=== PATIENT | female | born 1970 | race Caucasian/White ===

== ENCOUNTER → 2016-05-06 | Outpatient (CLI) | payer BC ==
--- NOTE | 2016-05-06 19:07 | US ---
EXAMINATION TYPE: US abdomen complete DATE OF EXAM: 05/06/2016 6:01 PM COMPARISON: NONE CLINICAL HISTORY: ABD Pain R10.84. LUQ pain EXAM MEASUREMENTS: Liver Length: 15.8 cm Gallbladder Wall: 0.2 cm CBD: 0.4 cm Spleen: 9.6 cm Right Kidney: congenitally absent Left Kidney: 15.2 x 5.9 x 6.1 cm TECHNOLOGIST IMPRESSION: Pancreas: not visualized due to midline bowel gas Liver: wnl Gallbladder: no stones seen Evidence for sonographic Styles's sign: No CBD: wnl Spleen: wnl Right Kidney: congenitally absent Left Kidney: enlarged Upper IVC: wnl Abd Aorta: proximal portion not visualized due to bowel gas The liver is homogenous. The intrahepatic portion of the IVC and proximal abdominal aorta are within normal limits. There is no evidence of cholelithiasis. Common bile duct is unremarkable. The visu alized portions of the pancreas are homogenous. The spleen is unremarkable. Kidneys are symmetric a nd free of hydronephrosis. No renal lesions are seen. IMPRESSION: No renal obstruction. Hypertrophied single kidney. No gallstones or dilated ducts.
--- NOTE | 2016-05-09 09:37 | MM ---
Reason for exam: screening (asymptomatic). Last mammogram was performed 2 years and 9 months ago. History: Patient history of other cancer. Physical Findings: A clinical breast exam by your physician is recommended on an annual basis and results should be correlated with mammographic findings. MG Screening Mammo w CAD Bilateral CC and MLO view(s) were taken. Prior study comparison: July 26, 2013, bilateral MG screening mammo w CAD. September 05, 2011, bilateral digital screening mammo w/CAD. There are scattered fibroglandular densities. No significant changes when compared with prior studies. ASSESSMENT: Negative, BI-RAD 1 RECOMMENDATION: Routine screening mammogram of both breasts in 1 year.
== END | disposition home or self-care (01) ==
LOC: RADUSMAIN 16:56
PROVIDERS: ATTEND Internal Medicine
DX: Z12.31 Encounter for screening mammogram for malignant neoplasm of breast (principal); R10.84 Generalized abdominal pain
CPT/HCPCS: 76700; G0202

== ENCOUNTER 2016-12-26 14:51 | Emergency (ER) | payer BC, OTHER ==
[2016-12-26 15:17] VITALS: BP 183/82; RESP 22; TEMP 98.4
[2016-12-26] MEDS ORDERED: IPRATROPIUM-ALBUTEROL 3 ML NEB INHALATION STA (15:24)
--- NOTE | 2016-12-26 15:36 | ED ---
URI HPI - General Chief Complaint: Upper Respiratory Infection Stated Complaint: Cough Time Seen by Provider: 12/26/16 15:19 Source: patient, RN notes reviewed Mode of arrival: ambulatory Limitations: no limitations - History of Present Illness Initial Comments: 46-year-old female presents emergency Department with chief complaint of cough congestion 3 days. Patient states that she has had a cough for the last few days. Patient states that she is a smoker and has COPD. She states she does feel improved after albuterol treatments at home. Patient denies any known fever, chills, headache or dizziness. Patient denies chest pain. Patient states that she stretches [id number] cough and cold medication with some results. - Related Data Home Medications Medication Instructions Recorded Confirmed traMADol HCL [Ultram] 50 mg PO Q4HR PRN 09/27/14 02/15/16 Meloxicam [Mobic] 7.5 mg PO DAILY 07/15/15 02/15/16 Omeprazole [PriLOSEC] 20 mg PO AC-BRKFST 07/15/15 02/15/16 Previous Rx's Medication Instructions Recorded Methocarbamol [Robaxin] 750 mg PO Q6H PRN #20 tab 07/15/15 Ibuprofen [Motrin] 800 mg PO Q6HR PRN #20 tab 09/11/15 HYDROcodone/APAP 7.5-325MG [[place] 1 each PO Q6HR PRN #30 tab 02/15/16 7.5] Levofloxacin [Levaquin] 500 mg PO DAILY #10 tab 12/26/16 Promethaz-Cod 6.25-10 mg/5 ml 5 ml PO Q6HR PRN #120 ml 12/26/16 [Phenergan with Codeine] methylPREDNISolone [Medrol Dose 4 mg PO DIRECTED #1 pack 12/26/16 Pack] Allergies Allergy/AdvReac Type Severity Reaction Status Date / Time No Known Allergies Allergy Verified 12/26/16 15:17 Review of Systems ROS Statement: Those systems with pertinent positive or pertinent negative responses have been documented in the HPI. ROS Other: All systems not noted in ROS Statement are negative. Past Medical History Past Medical History: Atrial Flutter, Asthma, Cancer Additional Past Medical History / Comment(s): Hx. of Atrial Flutter at times, seen by dairy nutrition consultant. States does not happen very often. Born with one kidney - left. History of Any Multi-Drug Resistant Organisms: None Reported Past Surgical History: Bowel Resection, Section, Heart Catheterization , Tonsillectomy, Tubal Ligation Additional Past Surgical History / Comment(s): , Colonoscopy, Colposcopy for cervical ca. Past Anesthesia/Blood Transfusion Reactions: No Reported Reaction Past Psychological History: No Psychological Hx Reported Smoking Status: Current every day smoker Past Alcohol Use History: None Reported Past Drug Use History: None Reported - Past Family History Mother Family Medical History: No Reported History General Exam Limitations: no limitations General appearance: alert, in no apparent distress Head exam: Present: atraumatic, normocephalic, normal inspection Eye exam: Present: normal appearance, PERRL, EOMI. Absent: scleral icterus, conjunctival injection, periorbital swelling ENT exam: Present: normal exam, normal oropharynx, mucous membranes moist, TM's normal bilaterally, normal external ear exam Neck exam: Present: normal inspection, full ROM. Absent: tenderness, meningismus, lymphadenopathy Respiratory exam: Present: wheezes. Absent: normal lung sounds bilaterally, respiratory distress, rales, rhonchi, stridor Cardiovascular Exam: Present: regular rate, normal rhythm, normal heart sounds. Absent: systolic murmur, diastolic murmur, rubs, gallop, clicks Neurological exam: Present: alert, oriented X3, CN II-XII intact Skin exam: Present: warm, dry, intact, normal color. Absent: rash Course Vital Signs 12/26/16 15:15 Temperature 98.4 F Pulse Rate 85 Respiratory 22 Rate Blood Pressure 183/82 O2 Sat by Pulse 96 Oximetry Medical Decision Making - Medical Decision Making 46-year-old female presented emergency from for cough and congestion 2 days. Patient's chest x-ray shows early pneumonia. Patient be started on Levaquin. Patient was also given steroids for her COPD. Patient is advised to stop smoking was counseled in detail greater than 3 minutes for smoking sensation. Patient will continue albuterol treatments at home. Return parameters were discussed. Disposition Clinical Impression: Pneumonia, COPD (chronic obstructive pulmonary disease) Disposition: HOME SELF-CARE Condition: Stable Instructions: Pneumonia (ED) Additional Instructions: Please return to the Emergency Department if symptoms worsen or any other concerns. Prescriptions: Levofloxacin [Levaquin] 500 mg PO DAILY #10 tab methylPREDNISolone [Medrol Dose Pack] 4 mg PO DIRECTED #1 pack Promethaz-Cod 6.25-10 mg/5 ml [Phenergan with Codeine] 5 ml PO Q6HR PRN #120 ml PRN Reason: Cough Referrals: Jaz Lama III, MD [Primary Care Provider] - 1-2 days Time of Disposition: 15:43
--- NOTE | 2016-12-26 15:36 | XR ---
EXAMINATION TYPE: XR chest 2V DATE OF EXAM: 12/26/2016 COMPARISON: NONE HISTORY: Cough TECHNIQUE: Frontal and lateral views of the chest are obtained. FINDINGS: There is evidence of right perihilar infiltrate which may reflect developing pneumonia. Correlate cli nically. No evidence for pneumothorax. No pleural effusion. The cardiac silhouette size is within normal limits. The osseous structures are grossly intact. IMPRESSION: 1. There is evidence of right perihilar infiltrate which may reflect developing pneumonia. Correlate clinically.
[2016-12-26] MEDS ORDERED: LEVOFLOXACIN 500 MG TAB PO STA (15:41)
[2016-12-26] MEDS ORDERED: predniSONE 20 MG TAB PO STA (15:41)
[2016-12-26 15:55] VITALS: PULSE 88
== END 2016-12-26 16:11 | disposition home or self-care (01) ==
LOC: EC 14:51
DX: J44.0 Chronic obstructive pulmonary disease with (acute) lower respiratory infection (principal); J18.9 Pneumonia, unspecified organism; F17.200 Nicotine dependence, unspecified, uncomplicated; Z79.1 Long term (current) use of non-steroidal anti-inflammatories (NSAID); Z79.899 Other long term (current) drug therapy
CPT/HCPCS: 99283 ×2; 94640; 71020; J7512

== ENCOUNTER 2017-10-21 19:06 | Emergency (ER) | payer BC ==
[2017-10-21 19:17] VITALS: TEMP 98
[2017-10-21] MEDS ORDERED: FAMOTIDINE 20 MG/2 ML VIAL IV STA (20:05)
[2017-10-21] MEDS ORDERED: diphenhydrAMINE 50 MG/ML 1 ML VIAL IVP STA (20:05)
[2017-10-21] MEDS ORDERED: ceFAZolin IN SWFI 2 GM/20 ML SYRINGE IVP ONE (20:05)
[2017-10-21] MEDS ORDERED: methylPREDNISolone SOD SUCCI 125 MG/2 ML VIAL IV STA (20:05)
[2017-10-21] MEDS ORDERED: ceFAZolin 1,000 MG in DEXTROSE/WATER 1 50ML.BAG IVPB STA (20:09)
--- NOTE | 2017-10-21 20:41 | ED ---
General Adult HPI - General Chief complaint: Skin/Abscess/Foreign Body Stated complaint: Allergic Reaction Time Seen by Provider: 10/21/17 19:29 Source: patient, RN notes reviewed Mode of arrival: ambulatory Limitations: no limitations - History of Present Illness Initial comments: 47-year-old female presents to the emergency department for a chief complaint of ALLERGIC reaction to bug bites. Patient states that she was outside one month ago when she obtained multiple bug bites to the legs and arms. Patient states that these have not been healing. Patient states that they have been very pruritic. Patient states that today when she was at work her skin became even more pruritic. She states that she tried Benadryl once a couple weeks ago but it didn't help. Patient states that her legs have also been more swollen around the bites. Patient denies history of diabetes, DVT. Patient denies any pain in the legs. Patient states that her legs often swell when she stands which is normal for her. Patient denies any fevers or chills at home. Patient states she just could not handle the itching today.Patient has no other complaints at this time including shortness of breath, chest pain, abdominal pain, nausea or vomiting, headache, or visual changes. - Related Data Home Medications Medication Instructions Recorded Confirmed traMADol HCL [Ultram] 50 mg PO Q4HR PRN 09/27/14 02/15/16 Meloxicam [Mobic] 7.5 mg PO DAILY 07/15/15 02/15/16 Omeprazole [PriLOSEC] 20 mg PO AC-BRKFST 07/15/15 02/15/16 Previous Rx's Medication Instructions Recorded Methocarbamol [Robaxin] 750 mg PO Q6H PRN #20 tab 07/15/15 Ibuprofen [Motrin] 800 mg PO Q6HR PRN #20 tab 09/11/15 HYDROcodone/APAP 7.5-325MG [[place] 1 each PO Q6HR PRN #30 tab 02/15/16 7.5] Levofloxacin [Levaquin] 500 mg PO DAILY #10 tab 12/26/16 Promethaz-Cod 6.25-10 mg/5 ml 5 ml PO Q6HR PRN #120 ml 12/26/16 [Phenergan with Codeine] methylPREDNISolone [Medrol Dose 4 mg PO DIRECTED #1 pack 12/26/16 Pack] Sulfamethox-Tmp 800-160Mg [Bactrim 1 tab PO Q12HR 10 Days tab 10/21/17 DS 800-160 mg] diphenhydrAMINE [Benadryl] 50 mg PO QID PRN #20 capsule 10/21/17 Allergies Allergy/AdvReac Type Severity Reaction Status Date / Time No Known Allergies Allergy Verified 10/21/17 19:16 Review of Systems ROS Statement: Those systems with pertinent positive or pertinent negative responses have been documented in the HPI. ROS Other: All systems not noted in ROS Statement are negative. Past Medical History Past Medical History: Atrial Flutter, Asthma, Cancer Additional Past Medical History / Comment(s): Hx. of Atrial Flutter at times, seen by sales administration manager. States does not happen very often. Born with one kidney - left., uterus/cervical ca History of Any Multi-Drug Resistant Organisms: None Reported Past Surgical History: Bowel Resection, Section, Heart Catheterization , Tonsillectomy, Tubal Ligation Additional Past Surgical History / Comment(s): , Colonoscopy, Colposcopy for cervical ca. Past Anesthesia/Blood Transfusion Reactions: No Reported Reaction Past Psychological History: No Psychological Hx Reported Smoking Status: Current every day smoker Past Alcohol Use History: None Reported Past Drug Use History: None Reported - Past Family History Mother Family Medical History: No Reported History General Exam - General Exam Comments Initial Comments: Patient has multiple small less than 1 cm x 1 cm scabbing bites on the arms as well as lower legs. Patient does have some erythema of the lower legs consistent with cellulitis, possibly stasis dermatitis. No purulent drainage from the scabbing areas. The Multiple excoriations noted around bites. Pedal pulse 2+ in lower extremities bilaterally. Cap refill < 2 seconds. sensation intact. Full range of motion of the knee and ankles bilat. No tenderness of the calf bilaterally. Negative Homans sign bilaterally. Limitations: no limitations General appearance: alert, in no apparent distress Head exam: Present: atraumatic Eye exam: Present: normal appearance ENT exam: Present: normal exam, normal oropharynx, mucous membranes moist, TM's normal bilaterally, normal external ear exam Neck exam: Present: normal inspection, full ROM. Absent: tenderness, meningismus, lymphadenopathy Respiratory exam: Present: normal lung sounds bilaterally. Absent: respiratory distress, wheezes, rales, rhonchi, stridor Cardiovascular Exam: Present: regular rate, normal rhythm, normal heart sounds. Absent: systolic murmur, diastolic murmur, rubs, gallop, clicks GI/Abdominal exam: Present: soft, normal bowel sounds. Absent: distended, tenderness, guarding, rebound, rigid Psychiatric exam: Present: normal affect, normal mood Skin exam: Present: warm, dry, intact, normal color. Absent: rash Course Vital Signs 10/21/17 19:14 Temperature 98.0 F Pulse Rate 82 Respiratory 18 Rate Blood Pressure 121/65 O2 Sat by Pulse 97 Oximetry Medical Decision Making - Medical Decision Making 47-year-old female presents to the emergency determine for a chief complaint of pruritus due to bug bites. Patient states she was bitten by bugs one month ago and they have not healed. Patient states have been itching. Today she has had worse itching and believes she was ALLERGIC to something at work. Patient denies any swelling of the lips tongue or throat. Patient did try Benadryl once a few weeks ago which did not help. Denies history of diabetes. No other medical complications. On exam patient has multiple healing sores noted on the legs and arms. Lower legs do appear to have mild cellulitic changes around the sores extending from ankle to about custodial up the bauman. However, patient states her legs normally look like erythematous in the lower legs with mild swelling. Vitals are within normal limits, no evidence of sepsis. Patient given steroid, benadryl, ancef and feeling much better. Pruritus has decreased. Patient was given a prescription for Benadryl as well as Bactrim to prevent any further infection. She will follow up with primary care in 1-2 days. Patient states she was sees her provider on the sixth. She will return to the emergency Department if she has any worsening symptoms. Disposition Clinical Impression: Allergic reaction, Bug bite Disposition: HOME SELF-CARE Condition: Good Instructions: Insect Bite or Sting (ED), General Allergic Reaction (ED) Additional Instructions: Please take Bactrim as directed. Please take Benadryl as needed for rash. Follow up with primary care in 1-2 days. Return to the emergency department if you have any worsening symptoms. Prescriptions: diphenhydrAMINE [Benadryl] 50 mg PO QID PRN #20 capsule PRN Reason: Rash Sulfamethox-Tmp 800-160Mg [Bactrim DS 800-160 mg] 1 tab PO Q12HR 10 Days tab Is patient prescribed a controlled substance at d/c from ED?: No Referrals: Jaz Lama III, MD [Primary Care Provider] - 1-2 days Time of Disposition: 22:29
[2017-10-21 22:52] VITALS: BP 130/80; PULSE 84; RESP 16
== END 2017-10-21 22:50 | disposition home or self-care (01) ==
LOC: EC 19:06
DX: T63.481A Toxic effect of venom of other arthropod, accidental (unintentional), initial encounter (principal); F17.200 Nicotine dependence, unspecified, uncomplicated; Z85.42 Personal history of malignant neoplasm of other parts of uterus; Z85.41 Personal history of malignant neoplasm of cervix uteri; Z95.818 Presence of other cardiac implants and grafts; Z79.1 Long term (current) use of non-steroidal anti-inflammatories (NSAID); Z79.899 Other long term (current) drug therapy
CPT/HCPCS: 99283; 96365; 96375 ×3; J1200; J2930; J0690

== ENCOUNTER → 2018-08-01 | Outpatient (CLI) | payer BC ==
--- NOTE | 2018-08-02 11:30 | MM ---
Reason for exam: screening (asymptomatic). Last mammogram was performed 2 years and 3 months ago. History: Patient history of other cancer. Took hormonal contraceptives for 15 years. Physical Findings: A clinical breast exam by your physician is recommended on an annual basis and results should be correlated with mammographic findings. MG Screening Mammo w CAD Bilateral CC and MLO view(s) were taken. Prior study comparison: May 06, 2016, bilateral MG screening mammo w CAD. July 26, 2013, bilateral MG screening mammo w CAD. The breast tissue is heterogeneously dense. This may lower the sensitivity of mammography. There is no discrete abnormality. ASSESSMENT: Negative, BI-RAD 1 RECOMMENDATION: Routine screening mammogram of both breasts in 1 year.
== END | disposition home or self-care (01) ==
LOC: RADMAMWWP 12:43
PROVIDERS: ATTEND Family Medicine
DX: Z12.31 Encounter for screening mammogram for malignant neoplasm of breast (principal)
CPT/HCPCS: 77067

== ENCOUNTER → 2020-08-21 | Outpatient (CLI) | payer BC ==
--- NOTE | 2020-08-25 13:31 | MM ---
Reason for exam: screening (asymptomatic). Last mammogram was performed 2 years and 1 month ago. History: Patient history of other cancer. Took hormonal contraceptives for 15 years. Physical Findings: A clinical breast exam by your physician is recommended on an annual basis and results should be correlated with mammographic findings. MG 3D Screening Mammo W/Cad Bilateral CC and MLO view(s) were taken. Prior study comparison: August 01, 2018, bilateral MG screening mammo w CAD. May 06, 2016, bilateral MG screening mammo w CAD. There are scattered fibroglandular densities. ASSESSMENT: Benign, BI-RAD 2 RECOMMENDATION: Routine screening mammogram of both breasts in 1 year.
== END | disposition home or self-care (01) ==
LOC: RADMAMWWP 15:01
PROVIDERS: ATTEND Family Medicine
DX: Z12.31 Encounter for screening mammogram for malignant neoplasm of breast (principal)
CPT/HCPCS: 77063; 77067

== ENCOUNTER → 2020-09-07 | Outpatient (CLI) | payer BC ==
[2020-09-07 15:35] LABS: African American GFR (CKD) >90 (>60 ml/min/1.73 sqM); Blood Urea Nitrogen 11 mg/dL (7-17); Non-African American GFR(CKD) 87 (>60 ml/min/1.73 sqM)
--- NOTE | 2020-09-08 08:19 | CT ---
EXAMINATION TYPE: CT abdomen pelvis w con DATE OF EXAM: 09/07/2020 COMPARISON: None HISTORY: h/o LUQ pain x9 months CT DLP: 2997.60 mGycm Automated exposure control for dose reduction was used. TECHNIQUE: Helical acquisition of images from the lung bases through the pelvis have been completed. CONTRAST: Performed with Oral Contrast and with IV Contrast, patient injected with 100 mL of Isovue 300. FINDINGS: There is a hiatal hernia with partial intrathoracic stomach LUNG BASES: No significant abnormality is appreciated. AORTA: No significant abnormality is appreciated. LIVER/GB: There is low attenuation, upper limit of normal for size. PANCREAS: No significant abnormality is seen. SPLEEN: No significant abnormality is seen. ADRENALS: No significant abnormality is seen. KIDNEYS: Right kidney is absent. There is urine contrast level seen within the prominent extrarenal p humberto region on delayed images, possible ureteropelvic junction stenosis within the left kidney. REPRODUCTIVE ORGANS: Uterus shows a lobular appearance possibly due to underlying fibroids BOWEL: No significant abnormality is seen. No evident appendicitis FREE AIR: No Free Air visible. ASCITES: None visible. PELVIC ADENOPATHY: None visualized. RETROPERITONEAL ADENOPATHY: No Retroperitoneal Adenopathy visible. URINARY BLADDER: Impression: Thickened wall of the urinary bladder possibly due to lack of distentio n, correlate to exclude cystitis OSSEOUS STRUCTURES: Degenerative disc changes are present in the lumbar spine, anterolisthesis grade 1 L5-S1, there is marked facet arthropathy change. No evident spondylolysis.. 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 SINGLE LEFT KIDNEY, SUGGESTIVE OF LEFT UPJ PARTIAL OBST RUCTION .
== END | disposition home or self-care (01) ==
LOC: RADCTMAIN 14:51
PROVIDERS: ATTEND Family Medicine
DX: K44.9 Diaphragmatic hernia without obstruction or gangrene (principal); N32.89 Other specified disorders of bladder; Z90.5 Acquired absence of kidney
CPT/HCPCS: 82565; 84520; 74177; 36415; Q9967

== ENCOUNTER → 2020-10-15 | Outpatient (CLI) | payer BC ==
--- NOTE | 2020-10-15 14:03 | US ---
EXAMINATION TYPE: US pelvic complete DATE OF EXAM: 10/15/2020 COMPARISON: CT 2020 CLINICAL HISTORY: N95.0 Post menopausal Bleeding. Post menopausal bleeding TECHNIQUE: Transabdominal sonographic images of the pelvis were acquired. Transvaginal sonographic i mages were medically necessary to better assess the following anatomy: endometrium and ovaries Date of LMP: 2 years ago EXAM MEASUREMENTS: Uterus: 8.3 x 4.1 x 5.4 cm Endometrial Stripe: 0.3 cm Right Ovary: not seen Left Ovary: not seen 1. Uterus: anteverted, heterogeneous 2. Endometrium: wnl 3. Right Ovary: not seen due to overlying bowel gas 4. Left Ovary: not seen due to overlying bowel gas 5. Bilateral Adnexa: wnl 6. Posterior cul-de-sac: wnl IMPRESSION: Neither ovary identified.
== END | disposition home or self-care (01) ==
LOC: RADUSWWP 10:59
PROVIDERS: ATTEND Family Medicine
DX: N95.0 Postmenopausal bleeding (principal)
CPT/HCPCS: 76830; 76856

== ENCOUNTER 2021-06-14 02:19 | Observation (INO) | payer BC ==
[2021-06-14] MEDS ORDERED: IPRATROPIUM-ALBUTEROL 3 ML NEB INHALATION STA ×2 (02:41→04:34)
[2021-06-14] MEDS ORDERED: SODIUM CHLORIDE 0.9% 500 ML 500 ML IV STA (02:41)
[2021-06-14] MEDS ORDERED: SODIUM CHLORIDE 0.9% 1,000 ML IV STA (02:41)
--- NOTE | 2021-06-14 02:54 | XR ---
EXAMINATION TYPE: XR chest 1V portable DATE OF EXAM: 06/14/2021 COMPARISON: December 26, 2016 HISTORY: Short of breath TECHNIQUE: FINDINGS: Heart and mediastinum are normal. Lungs are clear of infiltrate. There is no heart failure. There are no hilar masses. Bony thorax is intact. Pulmonary vascularity is normal. Costophrenic angl es are clear. IMPRESSION: No active cardiopulmonary disease. Normal heart. No adverse change.
--- NOTE | 2021-06-14 03:19 | ED ---
SOB HPI - General Chief Complaint: Shortness of Breath Stated Complaint: Difficulty Breathing Time Seen by Provider: 06/14/21 02:40 Source: patient, RN notes reviewed, old records reviewed Mode of arrival: wheelchair Limitations: no limitations - History of Present Illness Initial Comments: This is a 51-year-old female to the emergency department for evaluation patient presents today for evaluation regards to shortness of breath cough or congestion. Patient was recently evaluated at daycare. Patient was given a Z- Josue and symptoms have not improved. Patient has history of A. fib asthma flutter. No fevers or no recent travel history or sick contacts currently. MD Complaint: shortness of breath, cough -: days(s) Severity: moderate Severity scale (1-10): 4 Quality: aching Consistency: constant Improves With: oxygen, rest Worsens With: exertion Known History Of: COPD, asthma Context: recent URI, recent illness Associated Symptoms: denies other symptoms - Related Data Home Medications Medication Instructions Recorded Confirmed traMADol HCL [Ultram] 50 mg PO Q4HR PRN 09/27/14 02/15/16 Meloxicam [Mobic] 7.5 mg PO DAILY 07/15/15 02/15/16 Omeprazole [PriLOSEC] 20 mg PO AC-BRKFST 07/15/15 02/15/16 Previous Rx's Medication Instructions Recorded methocarbamoL [Robaxin] 750 mg PO Q6H PRN #20 tab 07/15/15 Ibuprofen [Motrin] 800 mg PO Q6HR PRN #20 tab 09/11/15 HYDROcodone/APAP 7.5-325MG [Elrosa 1 each PO Q6HR PRN #30 tab 02/15/16 7.5] Levofloxacin [Levaquin] 500 mg PO DAILY #10 tab 12/26/16 Promethaz-Cod 6.25-10 mg/5 ml 5 ml PO Q6HR PRN #120 ml 12/26/16 [Phenergan with Codeine] methylPREDNISolone [Medrol Dose 4 mg PO DIRECTED #1 pack 12/26/16 Pack] Sulfamethox-Tmp 800-160Mg [Bactrim 1 tab PO Q12HR 10 Days tab 10/21/17 DS 800-160 mg] diphenhydrAMINE [Benadryl] 50 mg PO QID PRN #20 capsule 10/21/17 Allergies Allergy/AdvReac Type Severity Reaction Status Date / Time sulfamethoxazole Allergy Rash/Hives Verified 06/14/21 02:29 [From Bactrim] trimethoprim [From Bactrim] Allergy Rash/Hives Verified 06/14/21 02:29 Review of Systems ROS Statement: Those systems with pertinent positive or pertinent negative responses have been documented in the HPI. ROS Other: All systems not noted in ROS Statement are negative. Past Medical History Past Medical History: Atrial Flutter, Asthma, Cancer Additional Past Medical History / Comment(s): Hx. of Atrial Flutter at times, seen by deck mate. States does not happen very often. Born with one kidney - left., uterus/cervical ca History of Any Multi-Drug Resistant Organisms: None Reported Past Surgical History: Bowel Resection, Section, Heart Catheterization, Tonsillectomy, Tubal Ligation Additional Past Surgical History / Comment(s): , Colonoscopy, Colposcopy for cervical ca. Past Anesthesia/Blood Transfusion Reactions: No Reported Reaction Past Psychological History: No Psychological Hx Reported Smoking Status: Never smoker Past Alcohol Use History: None Reported Past Drug Use History: None Reported - Past Family History Mother Family Medical History: No Reported History General Exam General appearance: alert, in no apparent distress Head exam: Present: atraumatic, normocephalic, normal inspection Eye exam: Present: normal appearance, PERRL, EOMI. Absent: scleral icterus, conjunctival injection, periorbital swelling ENT exam: Present: normal exam, mucous membranes moist Neck exam: Present: normal inspection. Absent: tenderness, meningismus, lymphadenopathy Respiratory exam: Present: wheezes, accessory muscle use, decreased breath sounds, prolonged expiratory. Absent: normal lung sounds bilaterally, respiratory distress, rales, rhonchi, stridor Cardiovascular Exam: Present: regular rate, normal rhythm, normal heart sounds. Absent: systolic murmur, diastolic murmur, rubs, gallop, clicks GI/Abdominal exam: Present: soft, normal bowel sounds. Absent: distended, tenderness, guarding, rebound, rigid Extremities exam: Present: normal inspection, full ROM, normal capillary refill. Absent: tenderness, pedal edema, joint swelling, calf tenderness Back exam: Present: normal inspection Neurological exam: Present: alert, oriented X3, CN II-XII intact Psychiatric exam: Present: normal affect, normal mood Skin exam: Present: warm, dry, intact, normal color. Absent: rash Course Vital Signs 06/14/21 06/14/21 06/14/21 02:26 03:01 03:05 Temperature 98.1 F Pulse Rate 78 Respiratory 21 Rate Blood Pressure 134/78 O2 Sat by Pulse 88 L 93 L Oximetry 06/14/21 06/14/21 06/14/21 03:24 03:38 03:44 Temperature Pulse Rate 74 79 80 Respiratory 18 Rate Blood Pressure 140/79 O2 Sat by Pulse 98 Oximetry - Reevaluation(s) Reevaluation #1: 06/14/21 04:07 Medical records reviewed Reevaluation #2: 06/14/21 04:07 Patient symptoms are improved Reevaluation #3: 06/14/21 04:07 Patient feels good for discharge home Medical Decision Making - Medical Decision Making This is a 51-year-old female to the ER for evaluation. Patient comes in today for evaluation of shortness of breath, not significantly improved here in the ER will be admitted for observation for COPD - Lab Data Result diagrams: 06/14/21 03:23 06/14/21 03:23 Lab Results 06/14/21 06/14/21 06/14/21 Range/Units 03:23 03:23 03:23 WBC 5.5 (3.8-10.6) k/uL RBC 4.97 (3.80-5.40) m/uL Hgb 15.3 (11.4-16.0) gm/dL Hct 47.3 H (34.0-46.0) % MCV 95.2 (80.0-100.0) fL MCH 30.8 (25.0-35.0) pg MCHC 32.4 (31.0-37.0) g/dL RDW 13.0 (11.5-15.5) % Plt Count 136 L (150-450) k/uL MPV 10.4 Neutrophils % 70 % Lymphocytes % 17 % Monocytes % 6 % Eosinophils % 4 % Basophils % 1 % Neutrophils # 3.8 (1.3-7.7) k/uL Lymphocytes # 0.9 L (1.0-4.8) k/uL Monocytes # 0.3 (0-1.0) k/uL Eosinophils # 0.2 (0-0.7) k/uL Basophils # 0.1 (0-0.2) k/uL PT 10.2 (9.0-12.0) sec INR 0.9 (<1.2) APTT 24.8 (22.0-30.0) sec Sodium 138 (137-145) mmol/L Potassium 4.0 (3.5-5.1) mmol/L Chloride 104 (98-107) mmol/L Carbon Dioxide 26 (22-30) mmol/L Anion Gap 8 mmol/L BUN 11 (7-17) mg/dL Creatinine 0.79 (0.52-1.04) mg/dL Est GFR (CKD-EPI)AfAm >90 (>60 ml/min/1.73 sqM) Est GFR (CKD-EPI)NonAf 87 (>60 ml/min/1.73 sqM) Glucose 98 (74-99) mg/dL Calcium 9.2 (8.4-10.2) mg/dL Magnesium 1.7 (1.6-2.3) mg/dL Total Bilirubin 0.9 (0.2-1.3) mg/dL AST 31 (14-36) U/L ALT 29 (4-34) U/L Alkaline Phosphatase 90 (38-126) U/L Total Protein 7.2 (6.3-8.2) g/dL Albumin 4.1 (3.5-5.0) g/dL - EKG Data -: EKG Interpreted by Me (UG is sinus rhythm 75 MO 156 QRS 83 QTc 44) - Radiology Data Radiology results: report reviewed (Chest x-rays negative for acute disease), image reviewed Disposition Clinical Impression: Acute exacerbation of chronic obstructive pulmonary disease Disposition: ADMITTED IP TO THIS HOSP Condition: Good Instructions (If sedation given, give patient instructions): Acute Bronchitis (ED), Chronic Bronchitis (ED) Is patient prescribed a controlled substance at d/c from ED?: No Referrals: Ian Mckinney DO [Primary Care Provider] - 1-2 days
[2021-06-14 04:03] LABS: Basophils # (A) 0.1 k/uL (0-0.2); Basophils % (A) 1 %; Eosinophils # (A) 0.2 k/uL (0-0.7); Eosinophils % (A) 4 %; HCT 47.3 % (34.0-46.0); HGB 15.3 gm/dL (11.4-16.0); Lymphocytes # (A) 0.9 k/uL (1.0-4.8); Lymphocytes % (A) 17 %; MCH 30.8 pg (25.0-35.0); MCHC 32.4 g/dL (31.0-37.0); MCV 95.2 fL (80.0-100.0); Mean Platelet Volume 10.4; Monocytes # (A) 0.3 k/uL (0-1.0); Monocytes % (A) 6 %; Neutrophils # (A) 3.8 k/uL (1.3-7.7); Neutrophils % (A) 70 %; Platelet Count 136 k/uL (150-450); RBC 4.97 m/uL (3.80-5.40); WBC 5.5 k/uL (3.8-10.6)
[2021-06-14 04:08] LABS: INR 0.9 (<1.2); Partial Thromboplastin Time 24.8 sec (22.0-30.0); Prothrombin Time 10.2 sec (9.0-12.0)
[2021-06-14 04:15] LABS: ALT 29 U/L (4-34); AST 31 U/L (14-36); African American GFR (CKD) >90 (>60 ml/min/1.73 sqM); Albumin 4.1 g/dL (3.5-5.0); Alkaline Phosphatase 90 U/L (38-126); Anion Gap 8 mmol/L; Blood Urea Nitrogen 11 mg/dL (7-17); Calcium 9.2 mg/dL (8.4-10.2); Carbon Dioxide 26 mmol/L (22-30); Chloride 104 mmol/L (98-107); Glucose 98 mg/dL (74-99); Magnesium 1.7 mg/dL (1.6-2.3); Non-African American GFR(CKD) 87 (>60 ml/min/1.73 sqM); Sodium 138 mmol/L (137-145); Total Bilirubin 0.9 mg/dL (0.2-1.3); Total Protein 7.2 g/dL (6.3-8.2)
[2021-06-14] MEDS ORDERED: methylPREDNISolone SOD SUCCI 125 MG/2 ML VIAL IV STA (04:26)
[2021-06-14] MEDS ORDERED: methylPREDNISolone SOD SUCCI 125 MG/2 ML VIAL IV SCH (06:00)
--- NOTE | 2021-06-14 07:50 | P.HPIM ---
History of Present Illness H&P Date: 06/14/21 History of Presenting Illness: Patient is a very pleasant 51-year-old female with a past medical history of atrial flutter on anticoagulation with Eliquis, congenital solitary kidney, chronic kidney disease stage II, COPD, and long-standing and current use of nicotine products smoking one pack of cigarettes a day for the past 40 years. Patient presented to the emergency department for with a chief complaint of worsening shortness of breath. Reports experiencing shortness of breath, cough, and congestion that has progressively worsened over the past 3 weeks. Patient states she was seen and evaluated at an urgent care and completed a Z-Josue with no improvement. Patient denies experiencing any fever, chills, diaphoresis, chest pain or palpitations, abdominal pain, nausea, vomiting, or experiencing any numbness/tingling/weakness in her extremities. Patient reports that she is vaccinated for Covid 19 and also recently had back in January 2021. Patient does report that she has cut back on smoking over the past week reporting only smoking approximately a half a pack per day secondary to her increased shortness of breath. Patient also reports shortness of breath significantly worsened with exertion and is improved with rest. In the emergency department Upon arrival to the emergency department patient was found to have SpO2 of 91% on room air requiring placement on 2 L O2 via nasal cannula increasing SpO2 94%. An EKG was completed showing normal sinus rhythm at 75 bpm. Chest x-ray was negative for acute cardiopulmonary process. Patient was started on duo nebs and steroids and admitted under hospitalist services for evaluation. Review of systems: Pertinent positives and negatives as discussed in HPI, a complete review of systems was performed and all other systems are negative. Physical exam: Vital signs reviewed and stable. General: Nontoxic, no distress and appears stated age. Derm: Skin warm and dry, normal coloration for ethnicity. Head: Atraumatic, normocephalic and symmetric. Eyes: EOMs intact, no lid lag, and anicteric sclera Mouth: no lip lesions, mucus membranes moist Cardiovascular: regular rate and rhythm with normal S1S2, no murmur, positive posterior tibial pulses bilaterally, and cap refill < 2 seconds. Lungs: Respirations even, regular, and unlabored . Lungs Tight with diffuse expiratory wheezes bilaterally. No rhonchi, no rales, no crackles, and no accessory muscle usage. Abdominal: soft, nontender to palpation, no guarding, no appreciable organomegaly Ext: ROM intact. No gross muscle atrophy, no edema, no contractures Neuro: Speech clear, face symmetrical and CN II-XII grossly intact with no noted focal neuro deficits Psych: Alert and oriented to person, place, time, and situation. Appropriate and pleasant affect. Assessment and Plan of Care: COPD with acute exacerbation Acute exacerbation on chronic bronchitis -Oxygenation to be administered and titrated as needed to maintain SPO2 equal to or greater than 92% -Telemetry monitoring. -Pulse-oximetry -Duonebs as needed for SOB and/or wheezing -Incentive Spirometry, encouraged use 10-15 times hourly while awake. -Steroids: prednisone 40 mg daily Atrial flutter on anticoagulation with Eliquis -Continue anticoagulation with Eliquis. Nicotine dependence -Continue to educate and encourage patient on the benefits of smoking cessation and risks associated with continued use. -Nicotine patch Congenital solitary kidney Chronic kidney disease stage II -stable The patient is admitted with an anticipated less than 2 midnight stay for evaluation of COPD exacerbation. CODE STATUS: full code DVT prophylaxis: Eliquis Discussed with: patient, patient's daughter, and RN Anticipated discharge date: tomorrow morning Anticipated discharge place: home A total of 44 minutes was spent on the care of this complex patient more than 50% of the time was spent in counseling and care coordination. Pierre Morales NP rendered care for this patient independently, reviewed the findings and plan as documented in the note above. I did not physically speak with or examine the patient on this date. Past Medical History Past Medical History: Atrial Flutter, Asthma, Cancer Additional Past Medical History / Comment(s): Hx. of Atrial Flutter at times, seen by plate preparer. States does not happen very often. Born with one kidney - left., uterus/cervical ca History of Any Multi-Drug Resistant Organisms: None Reported Past Surgical History: Bowel Resection, Section, Heart Catheterization, Tonsillectomy, Tubal Ligation Additional Past Surgical History / Comment(s): , Colonoscopy, Colposcopy for cervical ca. Past Anesthesia/Blood Transfusion Reactions: No Reported Reaction Past Psychological History: No Psychological Hx Reported Smoking Status: Never smoker Past Alcohol Use History: None Reported Past Drug Use History: None Reported - Past Family History Mother Family Medical History: No Reported History Medications and Allergies Home Medications Medication Instructions Recorded Confirmed Type Apixaban [Eliquis] 5 mg PO BID 06/14/21 06/14/21 History Ascorbic Acid [Vitamin C] 1,000 mg PO DAILY 06/14/21 06/14/21 History Cholecalciferol [Vitamin D3 (125 125 mcg PO DAILY 06/14/21 06/14/21 History Mcg = 5000 Iu)] Citalopram Hydrobromide [CeleXA] 40 mg PO DAILY 06/14/21 06/14/21 History Omeprazole 40 mg PO DAILY 06/14/21 06/14/21 History Zinc 50 mg PO DAILY 06/14/21 06/14/21 History Allergies Allergy/AdvReac Type Severity Reaction Status Date / Time sulfamethoxazole Allergy Rash/Hives Verified 06/14/21 06:44 [From Bactrim] trimethoprim [From Bactrim] Allergy Rash/Hives Verified 06/14/21 06:44 Physical Exam Osteopathic Statement: *. No significant issues noted on an osteopathic structural exam other than those noted in the History and Physical/Consult. Vitals: Vital Signs Temp Pulse Resp BP Pulse Ox 06/14/21 05:43 80 06/14/21 05:32 80 06/14/21 04:58 79 18 139/70 94 L 06/14/21 04:57 79 18 139/70 94 L 06/14/21 03:44 80 06/14/21 03:38 79 18 140/79 98 06/14/21 03:24 74 06/14/21 03:05 93 L 06/14/21 03:01 78 21 134/78 88 L 06/14/21 02:26 98.1 F Intake and Output 06/13/21 06/14/21 06/14/21 22:59 06:59 14:59 Other: Weight 127.006 kg Results CBC & Chem 7: 06/14/21 03:23 06/14/21 03:23 Labs: Abnormal Lab Results - Last 24 Hours (Table) 06/14/21 Range/Units 03:23 Hct 47.3 H (34.0-46.0) % Plt Count 136 L (150-450) k/uL Lymphocytes # 0.9 L (1.0-4.8) k/uL
[2021-06-14] MEDS ORDERED: ALBUTEROL NEBULIZED 2.5 MG/3 ML INHALATION SCH (08:00)
[2021-06-14] MEDS: CHOLECALCIFEROL 125 MCG (5000 IU) TABLET PO SCH (08:14)
[2021-06-14] MEDS: APIXABAN 5 MG TAB PO SCH ×2 (08:14→19:21)
[2021-06-14] MEDS: CITALOPRAM HYDROBROMIDE 20 MG TAB PO SCH (08:15)
[2021-06-14] MEDS: ZINC SULFATE 220 MG CAP PO SCH (08:15)
[2021-06-14] MEDS: SODIUM CHLORIDE 0.9% 1,000 ML IV SCH ×2 (08:15→15:23)
[2021-06-14] MEDS: ASCORBIC ACID 500 MG TAB PO SCH (08:15)
[2021-06-14] MEDS: PANTOPRAZOLE 40 MG TABLET PO SCH (08:17)
[2021-06-14] MEDS: ALBUTEROL NEBULIZED 2.5 MG/3 ML INHALATION PRN ×2 (08:49→15:17)
[2021-06-14] MEDS: methylPREDNISolone SOD SUCCI 125 MG/2 ML VIAL IV SCH ×2 (11:32→17:01)
[2021-06-14] MEDS ORDERED: ACETAMINOPHEN TAB 325 MG TAB PO PRN (13:58)
[2021-06-14] MEDS: NICOTINE 21MG/24HR PATCH TRANSDERM SCH (18:14)
[2021-06-15] MEDS: ALBUTEROL NEBULIZED 2.5 MG/3 ML INHALATION PRN ×2 (05:53→12:31)
[2021-06-15] MEDS: ASCORBIC ACID 500 MG TAB PO SCH (07:41)
[2021-06-15] MEDS: CITALOPRAM HYDROBROMIDE 20 MG TAB PO SCH (07:41)
[2021-06-15] MEDS: ZINC SULFATE 220 MG CAP PO SCH (07:41)
[2021-06-15] MEDS: CHOLECALCIFEROL 125 MCG (5000 IU) TABLET PO SCH (07:42)
[2021-06-15] MEDS: PANTOPRAZOLE 40 MG TABLET PO SCH (07:42)
[2021-06-15] MEDS: APIXABAN 5 MG TAB PO SCH (07:42)
[2021-06-15] MEDS: NICOTINE 21MG/24HR PATCH TRANSDERM SCH (07:42)
[2021-06-15 08:26] VITALS: BP 128/66; TEMP 97.5
[2021-06-15] MEDS ORDERED: predniSONE 20 MG TAB PO SCH (09:00)
--- NOTE | 2021-06-15 09:37 | P.DS ---
Providers Date of admission: 06/14/21 04:34 Expected date of discharge: 06/15/21 Attending physician: Jaime Celaya MD Primary care physician: Ian Mckinney Hospital Course: Discharge Diagnosis: COPD with acute exacerbation, discharged home on home oxygen as patient desaturated with exertion. Patient also discharged home with 5 day course of prednisone along with DuoNeb, Symbicort, and Ventolin inhaler. In addition patient strongly encouraged on stopping smoking and prescription for nicotine patches also sent. Acute exacerbation on chronic bronchitis Atrial flutter on anticoagulation with Eliquis, Continue anticoagulation with Eliquis. Nicotine dependence, patient was encouraged on the benefits of smoking cessation and risks associated with continued use. Congenital solitary kidney Chronic kidney disease stage II, stable Hospital Course: Patient is a very pleasant 51-year-old female with a past medical history of atrial flutter on anticoagulation with Eliquis, congenital solitary kidney, chronic kidney disease stage II, COPD, and long-standing and current use of nicotine products smoking one pack of cigarettes a day for the past 40 years. Patient presented to the emergency department for with a chief complaint of worsening shortness of breath. Reports experiencing shortness of breath, cough, and congestion that has progressively worsened over the past 3 weeks. Patient states she was seen and evaluated at an urgent care and completed a Z-Josue with no improvement. Patient denies experiencing any fever, chills, diaphoresis, chest pain or palpitations, abdominal pain, nausea, vomiting, or experiencing any numbness/tingling/weakness in her extremities. Patient reports that she is vaccinated for Covid 19 and also recently had back in January 2021. Patient does report that she has cut back on smoking over the past week reporting only smoking approximately a half a pack per day secondary to her increased shortness of breath. Patient also reports shortness of breath significantly worsened with exertion and is improved with rest. In the emergency department Upon arrival to the emergency department patient was found to have SpO2 of 91% on room air requiring placement on 2 L O2 via nasal cannula increasing SpO2 94%. An EKG was completed showing normal sinus rhythm at 75 bpm. Chest x-ray was negative for acute cardiopulmonary process. Patient was started on duo nebs and steroids and admitted under hospitalist services for evaluation. Patient monitored overnight and reports breathing much better this morning. She was weaned off of oxygen at rest maintaining SpO2 of 92%. However patient was noted to have desaturations with ambulation with room air walking saturations of 88%. Patient placed on 2 L O2 increasing SpO2 to 96% with ambulation. Had long discussion with patient regarding the importance of smoking cessation and risks of continued use and need for her to establish care with senior corporate accountant for further testing and long- term monitoring/management. Arrangements set up for patient to be discharged home with oxygen. Prescription sent for duo nebs as patient reports having a nebulizer machine at home, nicotine patches, Symbicort, and a Ventolin inhaler. Patient instructed she will need to follow up outpatient with PCP and senior corporate accountant. Patient is medically stable for discharge home at this time. Physical exam: Vital signs reviewed and stable. General: Nontoxic, no distress and appears stated age. Derm: Skin warm and dry, normal coloration for ethnicity. Head: Atraumatic, normocephalic and symmetric. Eyes: EOMs intact, no lid lag, and anicteric sclera Mouth: no lip lesions, mucus membranes moist Cardiovascular: regular rate and rhythm with normal S1S2, no murmur, positive posterior tibial pulses bilaterally, and cap refill < 2 seconds. Lungs: Respirations even, regular, and unlabored . Lungs with soft diffuse e xpiratory wheezes bilaterally. No rhonchi, no rales, no crackles, and no accessory muscle usage. Abdominal: soft, nontender to palpation, no guarding, no appreciable organomegaly Ext: ROM intact. No gross muscle atrophy, no edema, no contractures Neuro: Speech clear, face symmetrical and CN II-XII grossly intact with no noted focal neuro deficits Psych: Alert and oriented to person, place, time, and situation. Appropriate and pleasant affect. A total of 39 minutes of time were spent preparing this complex discharge summary. Patient Condition at Discharge: Stable Plan - Discharge Summary New Discharge Prescriptions: New predniSONE [Deltasone] 40 mg PO DAILY 4 Days #8 tab Nicotine 21Mg/24Hr Patch [Habitrol] 1 patch TRANSDERM DAILY 30 Days #30 patch Albuterol Nebulized [Ventolin Nebulized] 2.5 mg INHALATION RT-QID PRN #360 ml PRN Reason: Shortness Of Breath Or Wheezing Budesonide-Formot 160-4.5 Mcg [Symbicort 160-4.5 Mcg Inhaler] 2 puff INHALATION BID #1 each Albuterol Inhaler [Ventolin Hfa Inhaler] 2 puff INHALATION RT-QID PRN #8 gm PRN Reason: Shortness Of Breath Or Wheezing Continue Omeprazole 40 mg PO DAILY Cholecalciferol [Vitamin D3 (125 Mcg = 5000 Iu)] 125 mcg PO DAILY Zinc 50 mg PO DAILY Ascorbic Acid [Vitamin C] 1,000 mg PO DAILY Citalopram Hydrobromide [CeleXA] 40 mg PO DAILY Apixaban [Eliquis] 5 mg PO BID Discharge Medication List Apixaban [Eliquis] 5 mg PO BID 06/14/21 [History] Ascorbic Acid [Vitamin C] 1,000 mg PO DAILY 06/14/21 [History] Cholecalciferol [Vitamin D3 (125 Mcg = 5000 Iu)] 125 mcg PO DAILY 06/14/21 [History] Citalopram Hydrobromide [CeleXA] 40 mg PO DAILY 06/14/21 [History] Omeprazole 40 mg PO DAILY 06/14/21 [History] Zinc 50 mg PO DAILY 06/14/21 [History] Albuterol Inhaler [Ventolin Hfa Inhaler] 2 puff INHALATION RT-QID PRN #8 gm 06/15/21 [Rx] Albuterol Nebulized [Ventolin Nebulized] 2.5 mg INHALATION RT-QID PRN #360 ml 06/15/21 [Rx] Budesonide-Formot 160-4.5 Mcg [Symbicort 160-4.5 Mcg Inhaler] 2 puff INHALATION BID #1 each 06/15/21 [Rx] Nicotine 21Mg/24Hr Patch [Habitrol] 1 patch TRANSDERM DAILY 30 Days #30 patch 06/15/21 [Rx] predniSONE [Deltasone] 40 mg PO DAILY 4 Days #8 tab 06/15/21 [Rx] Follow up Appointment(s)/Referral(s): [facility] [NON-STAFF] - As Needed Ian Mckinney DO [Primary Care Provider] - 06/21/21 8:20 am ([place] in [place] office) Ashley Fry MD [STAFF PHYSICIAN] - 07/07/21 9:30 am (Is important for you to establish care with a senior corporate accountant and have pulmonary function tests completed.) Patient Instructions/Handouts: How to Stop Smoking (DC), Using Oxygen at Home (DC), Acute Bronchitis (ED), Chronic Bronchitis (ED) Activity/Diet/Wound Care/Special Instructions: Activity: As tolerated. Take breaks as needed. Diet: Heart healthy and carb consistent diet. Avoid salts, or foods with hidden salts such as canned or boxed foods and frozen dinners. Extra salt makes your heart work harder and traps the fluid in your body for longer. Wear the 2 L of oxygen with activity and as needed. Please practice safety with oxygen. Do not smoke with the oxygen. Special Instructions: Take all of your medications as directed and remember to keep all of your doctor's appointments and follow-up as needed. It is of high importance to her oxygen at all times during ambulation/physical activity as her oxygen saturations dropped upon ambulation. He will need to follow up with the senior corporate accountant as we discussed for pulmonary function test and further evaluation for home oxygen use. Thank you for allowing us to participate in your care, it was truly a pleasure having you for our patient!!! Discharge Disposition: HOME SELF-CARE
[2021-06-15 12:34] VITALS: RESP 16
[2021-06-15 12:41] VITALS: PULSE 74
== END 2021-06-15 13:45 | disposition home or self-care (01) ==
LOC: EC 02:19 → 4SSUR 04:34
PROVIDERS: ADMIT Internal Medicine; ATTEND Internal Medicine
DX: J44.1 Chronic obstructive pulmonary disease with (acute) exacerbation (principal); I48.92 Unspecified atrial flutter; N18.2 Chronic kidney disease, stage 2 (mild); Q60.0 Renal agenesis, unilateral; F17.210 Nicotine dependence, cigarettes, uncomplicated; Z20.822 Contact with and (suspected) exposure to COVID-19; Z79.01 Long term (current) use of anticoagulants; Z79.1 Long term (current) use of non-steroidal anti-inflammatories (NSAID); Z79.899 Other long term (current) drug therapy; Z88.1 Allergy status to other antibiotic agents; Z88.2 Allergy status to sulfonamides; Z85.41 Personal history of malignant neoplasm of cervix uteri; Z86.16 Personal history of COVID-19; Z90.49 Acquired absence of other specified parts of digestive tract; Z98.51 Tubal ligation status; Z98.891 History of uterine scar from previous surgery; Z98.890 Other specified postprocedural states; Z71.6 Tobacco abuse counseling
CPT/HCPCS: 96376; 96374; 99285; 36415; 94640 ×4; 94760 ×2; 93005; 83880; 80053; 83735; 84484; 85025; 85610; 85730; 87635; 71045; G0378 ×2; J2930; J7512

== ENCOUNTER 2023-12-13 23:06 | Emergency (ER) | payer BC ==
[2023-12-13 23:28] VITALS: TEMP 97.8
[2023-12-14] MEDS: CYCLOBENZAPRINE 10 MG TAB PO STA (00:04)
[2023-12-14] MEDS: IBUPROFEN 800 MG TAB PO STA (00:04)
--- NOTE | 2023-12-14 00:13 | ED ---
Back Pain [facility] - General Chief Complaint: Back Pain/Injury Stated Complaint: Back Pain Time Seen by Provider: 12/14/23 00:11 Source: patient, RN notes reviewed Mode of arrival: ambulatory Limitations: no limitations - History of Present Illness Initial Comments: 53-year-old female presented to the ER with a chief complaint of lumbar back pain. She states on Monday she slept on the couch and upon waking she experience lumbar back pain mainly on the left side. She does report pain radiating down left leg. Patient states she has been going to work and taking Tylenol and heating pads with minor relief. She states after moving at work pain does improve. Pain is worse in the morning. She denies any saddle paresthesias, bowel or bladder incontinence, fevers. She states she still is able to ambulate but is difficult due to the pain. - Related Data Home Medications Medication Instructions Recorded Confirmed Apixaban [Eliquis] 5 mg PO BID 06/14/21 06/14/21 Ascorbic Acid [Vitamin C] 1,000 mg PO DAILY 06/14/21 06/14/21 Cholecalciferol [Vitamin D3 (125 125 mcg PO DAILY 06/14/21 06/14/21 Mcg = 5000 Iu)] Citalopram Hydrobromide [CeleXA] 40 mg PO DAILY 06/14/21 06/14/21 Omeprazole 40 mg PO DAILY 06/14/21 06/14/21 Zinc 50 mg PO DAILY 06/14/21 06/14/21 Previous Rx's Medication Instructions Recorded Albuterol Inhaler [Ventolin Hfa 2 puff INHALATION RT-QID PRN #8 gm 06/15/21 Inhaler] Albuterol Nebulized [Ventolin 2.5 mg INHALATION RT-QID PRN #360 06/15/21 Nebulized] ml Budesonide-Formot 160-4.5 Mcg 2 puff INHALATION BID #1 each 06/15/21 [Symbicort 160-4.5 Mcg Inhaler] Nicotine 21Mg/24Hr Patch [Habitrol] 1 patch TRANSDERM DAILY 30 Days 06/15/21 #30 patch predniSONE [Deltasone] 40 mg PO DAILY 4 Days #8 tab 06/15/21 Cyclobenzaprine [Flexeril] 10 mg PO TID PRN #15 tab 12/14/23 Lidocaine 4% Patch 1 patch TOPICAL DAILY #30 patch 12/14/23 Allergies Allergy/AdvReac Type Severity Reaction Status Date / Time sulfamethoxazole Allergy Rash/Hives Verified 12/13/23 23:28 [From Bactrim] trimethoprim [From Bactrim] Allergy Rash/Hives Verified 12/13/23 23:28 Review of Systems ROS Statement: Those systems with pertinent positive or pertinent negative responses have been documented in the HPI. ROS Other: All systems not noted in ROS Statement are negative. Past Medical History Past Medical History: Atrial Flutter, Asthma, Cancer Additional Past Medical History / Comment(s): Hx. of Atrial Flutter at times, seen by narcotics and/or vice detective. States does not happen very often. Born with one kidney - left., uterus/cervical ca History of Any Multi-Drug Resistant Organisms: None Reported Past Surgical History: Bowel Resection, Section, Heart Catheterization, Tonsillectomy, Tubal Ligation Additional Past Surgical History / Comment(s): , Colonoscopy, Colposcopy for cervical ca. Past Anesthesia/Blood Transfusion Reactions: No Reported Reaction Past Psychological History: No Psychological Hx Reported Smoking Status: Never smoker Past Alcohol Use History: None Reported Past Drug Use History: None Reported - Past Family History Mother Family Medical History: No Reported History General Exam Limitations: no limitations General appearance: alert, in no apparent distress Neck exam: Present: normal inspection. Absent: tenderness, meningismus, lymphadenopathy Respiratory exam: Present: normal lung sounds bilaterally. Absent: respiratory distress, wheezes, rales, rhonchi, stridor Cardiovascular Exam: Present: regular rate, normal rhythm, normal heart sounds. Absent: systolic murmur, diastolic murmur, rubs, gallop, clicks Extremities exam: Present: normal inspection, full ROM, normal capillary refill. Absent: tenderness, pedal edema, joint swelling, calf tenderness Back exam: Present: tenderness (Left pelvic girdle/left paraspinal muscles lumbar. No overlying skin changes. Negative straight leg raise bilaterally.) Neurological exam: Present: alert, oriented X3, CN II-XII intact Skin exam: Present: warm, dry, intact, normal color. Absent: rash Course Vital Signs 12/13/23 12/14/23 23:25 01:28 Temperature 97.8 F Pulse Rate 66 64 Respiratory 22 16 Rate Blood Pressure 115/74 117/65 O2 Sat by Pulse 95 98 Oximetry Medical Decision Making - Medical Decision Making Was pt. sent in by a medical professional or institution (, ODETTE, GRILL ATTENDANT, urgent care, hospital, or skilled nursing...) When possible be specific @ -No Did you speak to anyone other than the patient for history (EMS, parent, family, police, friend...)? What history was obtained from this source @ -No Did you review nursing and triage notes (agree or disagree)? Why? @ -I reviewed and agree with nursing and triage notes Were old charts reviewed (outside hosp., previous admission, EMS record, old EKG, old radiological studies, urgent care reports/EKG's, skilled nursing records)? Report findings @ -No old charts were reviewed Differential Diagnosis (chest pain, altered mental status, abdominal pain women, abdominal pain men, vaginal bleeding, weakness, fever, dyspnea, syncope, headache, dizziness, GI bleed, back pain, seizure, CVA, palpatations, mental hea lth, musculoskeletal)? @ -Differential Back Pain: Strain, zoster, cauda equina syndrome, epidural abscess, vertebral osteomyelitis, discitis, fracture, subluxation, disc herniation, DJD, spinal stenosis, dissection, AAA, pancreatitis, peptic ulcer disease, pyelonephritis, kidney stone, this is not meant to be an all-inclusive list. EKG interpreted by me (3pts min.). @ -None done X-rays interpreted by me (1pt min.). @ -Lumbar spine x-rays interpreted by me negative for acute fractures or disl ocations. CT interpreted by me (1pt min.). @ -CT angio thoracic abdominal and pelvic aorta negative for acute aneurysm or dissection. No other acute process. U/S interpreted by me (1pt. min.). @ -None done What testing was considered but not performed or refused? (CT, X-rays, U/S, labs)? Why? @ -None What meds were considered but not given or refused? Why? @ -None Did you discuss the management of the patient with other professionals (professionals i.e. ODETTE Pierson, GRILL ATTENDANT, lab, RT, psych nurse, social media developer, medical recruiter, teacher, amphibious operations officer, correctional counselor/case manager)? Give summary @ -No Was smoking cessation discussed for >3mins.? @ -No Was critical care preformed (if so, how long)? @ -No Were there social determinants of health that impacted care today? How? (Homelessness, low income, unemployed, alcoholism, drug addiction, transportation, low edu. Level, literacy, decrease access to med. care, halfway, rehab)? @ -No Was there de-escalation of care discussed even if they declined (Discuss DNR or withdrawal of care, Hospice)? DNR status @ -No What co-morbidities impacted this encounter? (DM, HTN, Smoking, COPD, CAD, Cancer, CVA, ARF, Chemo, Hep., AIDS, mental health diagnosis, sleep apnea, mor bid obesity)? @ -None Was patient admitted / discharged? Hospital course, mention meds given and [place], prescriptions, significant lab abnormalities, going to OR and other pertinent info. @ -Discharge. 53-year-old female presented to the ER with a chief complaint of back pain. History and physical exam completed. Vitals within normal limits. Patient in no signs of acute distress. No red flag back pain symptoms indicative cauda equina syndrome. Bilateral lower extremities neurovascular in tact. X-rays obtained negative for acute osseous process. There was an abnormality concerning of aortic abnormality, CT a ordered at that time. CT angio thoracic abdominal and pelvic aorta negative for acute dissection or aortic aneurysm. Patient received p.o. ibuprofen, Flexeril and liter IV fluids in the ER for symptom control. Upon reevaluation, patient sleeping in exam room no signs of acute distress. Results discussed with patient, all questions answered. Symptoms believed to be musculoskeletal in nature as it is worse in the morning and improves after movement and tender to touch. Lidocaine patches and Flexeril prescribed. Advise close follow-up with PCP. Strict return parameters discussed. Patient discharged stable condition. Patient verbally stressed understanding and agreement with care plan. Case discussed with the attending, Dr. Ochoa. Undiagnosed new problem with uncertain prognosis? @ -No Drug Therapy requiring intensive monitoring for toxicity (Heparin, Nitro, Insulin, Cardizem)? @ -No Were any procedures done? @ -No Diagnosis/symptom? @ -Muscle strain/back pain Acute, or Chronic, or Acute on Chronic? @ -Acute Uncomplicated (without systemic symptoms) or Complicated (systemic symptoms)? @ -Uncomplicated Side effects of treatment? @ -No Exacerbation, Progression, or Severe Exacerbation? @ -No Poses a threat to life or bodily function? How? (Chest pain, USA, CT, pneumonia, PE, COPD, DKA, ARF, appy, cholecystitis, CVA, Diverticulitis, Homicidal, Suicidal, threat to staff... and all critical care pts) @ -No - Lab Data Result diagrams: 12/14/23 00:37 12/14/23 00:37 Lab Results 12/14/23 12/14/23 Range/Units 00:37 00:37 WBC 8.3 (3.8-10.6) k/uL RBC 4.51 (3.80-5.40) m/uL Hgb 14.4 (11.4-16.0) gm/dL Hct 43.6 (34.0-46.0) % MCV 96.7 (80.0-100.0) fL MCH 31.8 (25.0-35.0) pg MCHC 32.9 (31.0-37.0) g/dL RDW 13.3 (11.5-15.5) % Plt Count 247 (150-450) k/uL MPV 7.7 Neutrophils % 74 % Lymphocytes % 15 % Monocytes % 5 % Eosinophils % 4 % Basophils % 0 % Neutrophils # 6.2 (1.3-7.7) k/uL Lymphocytes # 1.3 (1.0-4.8) k/uL Monocytes # 0.4 (0-1.0) k/uL Eosinophils # 0.3 (0-0.7) k/uL Basophils # 0.0 (0-0.2) k/uL Sodium 136 L (137-145) mmol/L Potassium 4.6 (3.5-5.1) mmol/L Chloride 107 (98-107) mmol/L Carbon Dioxide 24 (22-30) mmol/L Anion Gap 5 mmol/L BUN 20 H (7-17) mg/dL Creatinine 0.75 (0.52-1.04) mg/dL Est GFR (CKD-EPI)AfAm >90 (>60 ml/min/1.73 sqM) Est GFR (CKD-EPI)NonAf >90 (>60 ml/min/1.73 sqM) Glucose 107 H (74-99) mg/dL Calcium 9.1 (8.4-10.2) mg/dL Total Bilirubin 0.5 (0.2-1.3) mg/dL AST 24 (14-36) U/L ALT 19 (4-34) U/L Alkaline Phosphatase 89 (38-126) U/L Total Protein 6.0 L (6.3-8.2) g/dL Albumin 3.4 L (3.5-5.0) g/dL - Radiology Data Radiology results: report reviewed, image reviewed Disposition Clinical Impression: Muscle strain, Back pain Disposition: HOME SELF-CARE Condition: Stable Instructions (If sedation given, give patient instructions): Acute Low Back Pain (ED) Additional Instructions: Alternate [id number]-kjitseh ibuprofen and Tylenol for pain control. Take Flexeril as needed for muscle spasms. Please be aware this medication can make you drowsy and sleepy. Use lidocaine patches daily for pain control. Follow-up with PCP. Return to the ER for any new or worsening concerns. Prescriptions: Cyclobenzaprine [Flexeril] 10 mg PO TID PRN #15 tab PRN Reason: Muscle Spasm Lidocaine 4% Patch 1 patch TOPICAL DAILY #30 patch Is patient prescribed a controlled substance at d/c from ED?: No Referrals: Anjali Pacheco MD [Primary Care Provider] - 1-2 days Time of Disposition: 01:26
--- NOTE | 2023-12-14 00:28 | XR ---
EXAMINATION TYPE: XR lumbar spine 1V DATE OF EXAM: 12/14/2023 COMPARISON: NONE HISTORY: Left-sided back pain TECHNIQUE: Single frontal view of the lumbar spine FINDINGS: There are 5 lumbar-type vertebra. There is a levoconvex scoliosis centered at L1-L2 level. Overlying soft tissue is unremarkable. IMPRESSION: As above. [facility], , 12/14/2023 12:26 AM
[2023-12-14 00:46] LABS: Basophils % (A) 0 %; Eosinophils # (A) 0.3 k/uL (0-0.7); Eosinophils % (A) 4 %; HCT 43.6 % (34.0-46.0); HGB 14.4 gm/dL (11.4-16.0); Lymphocytes # (A) 1.3 k/uL (1.0-4.8); Lymphocytes % (A) 15 %; MCH 31.8 pg (25.0-35.0); MCHC 32.9 g/dL (31.0-37.0); MCV 96.7 fL (80.0-100.0); Mean Platelet Volume 7.7; Monocytes # (A) 0.4 k/uL (0-1.0); Monocytes % (A) 5 %; Neutrophils # (A) 6.2 k/uL (1.3-7.7); Neutrophils % (A) 74 %; Platelet Count 247 k/uL (150-450); RBC 4.51 m/uL (3.80-5.40); RDW 13.3 % (11.5-15.5); WBC 8.3 k/uL (3.8-10.6)
[2023-12-14] MEDS: SODIUM CHLORIDE 0.9% 1,000 ML IV STA (00:49)
[2023-12-14 00:57] LABS: ALT 19 U/L (4-34); AST 24 U/L (14-36); African American GFR (CKD) >90 (>60 ml/min/1.73 sqM); Albumin 3.4 g/dL (3.5-5.0); Alkaline Phosphatase 89 U/L (38-126); Anion Gap 5 mmol/L; Blood Urea Nitrogen 20 mg/dL (7-17); Calcium 9.1 mg/dL (8.4-10.2); Carbon Dioxide 24 mmol/L (22-30); Chloride 107 mmol/L (98-107); Glucose 107 mg/dL (74-99); Non-African American GFR(CKD) >90 (>60 ml/min/1.73 sqM); Potassium 4.6 mmol/L (3.5-5.1); Sodium 136 mmol/L (137-145); Total Bilirubin 0.5 mg/dL (0.2-1.3)
--- NOTE | 2023-12-14 01:08 | CT ---
EXAMINATION TYPE: CT angio thor/abd pel aorta DATE OF EXAM: 12/14/2023 COMPARISON: Prior CT abdomen and pelvis September 07, 2020 HISTORY: ABNORMAL XRAY, CONCERN FOR POSSIBLE ANEURYSM. PT UNSURE OF H/O HIATAL HERNIA. HX OF HEART CA TH PT STATES THEY DIDN'T FIND ANYTHING, CERVICAL CANCER, TUBAL, BORN WITH ONE KIDNEY (LEFT) CT DLP: 1573.6 mGycm. Automated Exposure Control for Dose Reduction was Utilized. CONTRAST: CTA scan of the thorax, abdomen and pelvis is performed without and with IV Contrast, patient injecte d with 80 mL of Isovue 370. Three-D reconstructed images are created a workstation. FINDINGS: VASCULAR: Noncontrast images show no suspicious hyperdense material to suggest intramural hematoma. P ostcontrast images show satisfactory enhancement of the central pulmonary arteries. There is three-ve ssel origin from the aortic arch. 8 celiac artery, SMA, and LUANA. Patent left renal artery. Patent jacki ac and femoral artery vessels without significant stenosis. No AAA. Tyqg-ho-cvgsyvco calcified plaque in the single left renal artery. No linear hypodensity to suggest dissection. LUNGS: There is 4 mm posterior right basilar nodule axial image 119. No suspicious focal consolidatio n. No greater than 6 mm pulmonary nodules. MEDIASTINUM: Heterogeneous enlarged thyroid gland. No cardiomegaly or pericardial effusion. LIVER/GB: No significant abnormality is appreciated. PANCREAS: No significant abnormality is seen. SPLEEN: No significant abnormality is seen. ADRENALS: No significant abnormality is seen. KIDNEYS: No significant abnormality is seen. BOWEL: Small to moderate-sized hiatal hernia is redemonstrated. No abnormal small or large bowel dila tation. GENITAL ORGANS: Arcuate type morphology to the uterus is felt present. LYMPH NODES: No greater than 1cm abdominal or pelvic lymph nodes are appreciated. OSSEOUS STRUCTURES: Slight scoliotic curvature in the thoracolumbar spine. Moderate to severe disc sp lion narrowing at the L5-S1 level with slight spondylolisthesis redemonstrated. Moderate disc space na rrowing and endplate sclerosis at the anterior T11-T12 level. OTHER: No significant additional abnormality is seen. IMPRESSION: No aortic aneurysm or dissection. No acute findings are present. [facility], , 12/14/2023 1:06 AM
[2023-12-14 01:33] VITALS: BP 117/65; PULSE 64; RESP 16
== END 2023-12-14 01:36 | disposition home or self-care (01) ==
LOC: EC 23:06
CPT/HCPCS: 36415; 71275; 72020; 74174; 80053; 85025; 96360; 99284